=== PATIENT | male | born 1945 | race Two or more races ===

== ENCOUNTER → 2018-10-16 07:14 | Outpatient (CLI) | payer OTHER | END | disposition home or self-care (01) | LOC: LAB 07:14 | DX: E03.8 Other specified hypothyroidism (principal); E78.89 Other lipoprotein metabolism disorders ==

== ENCOUNTER 2018-10-16 08:16 | Outpatient (CLI) | payer OTHER | END 2018-10-16 17:00 | disposition home or self-care (01) | LOC: SONOGRAMA 08:16 | DX: R22.1 Localized swelling, mass and lump, neck (principal) ==